=== PATIENT | female | born 1980 | race Caucasian/White ===

== ENCOUNTER 2021-02-04 16:36 | Emergency (ER) | payer MEDICAID ==
[2021-02-04] MEDS ORDERED: Ketorolac 60 MG/2 ML SDV IM ONE (16:58)
[2021-02-04] MEDS ORDERED: methylPREDNISolone Sodium Succinate 125 MG/2 ML SDV IM ONE (16:58)
[2021-02-04] MEDS ORDERED: Loratadine 10 MG Tab PO ONE (16:59)
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
== END 2021-02-04 17:45 | disposition home or self-care (01) ==
LOC: FB.ED 16:36
DX: T54.91XA Toxic effect of unspecified corrosive substance, accidental (unintentional), initial encounter (principal); L30.9 Dermatitis, unspecified
CPT/HCPCS: 96372; 99283; A9270; J1885; J2930

== ENCOUNTER 2021-08-27 03:31 | Emergency (ER) | payer MEDICAID ==
[2021-08-27] MEDS ORDERED: Acetaminophen/Codeine 300-30 MG Tab PO ONE (03:32)
[2021-08-27] MEDS ORDERED: Sulfamethoxazole/Trimethoprim 800-160 MG Tab PO ONE (03:32)
--- NOTE | 2021-08-28 03:59 | ER ---
DATE SEEN: 08/27/2021 CHIEF COMPLAINT: Ear pain. HISTORY OF PRESENT ILLNESS: This is a 41-year-old female with right ear pain x2 hours. Also noted bleeding from that area. No fever. Has not taken anything to relieve the pain. REVIEW OF SYSTEMS: Negative for sore throat. MEDICATIONS: Reviewed. ALLERGIES: Cephalexin and penicillin. PHYSICAL EXAMINATION: VITAL SIGNS: Afebrile. EARS: The right TM is bulging and ruptured. NECK: Supple. No lymphadenopathy. IMPRESSION: Otitis media. PLAN: Bactrim DS and Tylenol No. 3. /[id number] JASMINA/ANAMIKA
== END 2021-08-27 03:50 | disposition home or self-care (01) ==
LOC: FB.ED 03:31
DX: H66.91 Otitis media, unspecified, right ear (principal)
CPT/HCPCS: 99282; A9270-GY

== ENCOUNTER 2021-09-04 12:57 | Emergency (ER) | payer MEDICAID ==
[2021-09-04] MEDS ORDERED: Acetaminophen/HYDROcodone 325-5 MG Tab PO STA (13:26)
[2021-09-04] MEDS ORDERED: Iopamidol 755 Mg/ML 100 ML Bottle IV ONE (14:52)
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
--- NOTE | 2021-09-04 16:10 | CT ---
COMPUTERIZED TOMOGRAPHY ANGIOGRAPHY CHEST WITH CONTRAST INDICATION: Elevated D-dimer, family history of clots, question PE. TECHNIQUE: Spiral 1.25 mm axial sections were obtained through the chest with 85 mL Isovue 370 at 4 mL/second with sagittal, axial and coronal reconstructions 09/04/21 - no comparison. Total exam DLP was 890.74 mGy/cm. FINDINGS: What appears to be the right thyroid lobe is markedly enlarged. There may be a mass in that area. Ultrasound may be helpful for confirmation. There are some calcified lymph nodes suggesting previous granulomatous disease in the mediastinum. No mediastinal mass was seen. The heart did not appear enlarged. No gross abnormality was noted in the visualized abdomen. A definite active infiltrate or effusion was not identified. Linear scar is suggested at the right lung base. No definite evidence of PE identified. There are some mottled areas of perfusion suggested, but these likely are due to flow artifact. There are some mild hypertrophic degenerative changes of vertebral bodies anteriorly in the upper through lower thoracic spine. IMPRESSION: 1. No definite evidence for pulmonary emboli. 2. Minimal scarring at the right lung base. 3. No definite acute process. Report was called to Dr. Ramirez [facility] [address] [facility]
== END 2021-09-04 16:15 | disposition home or self-care (01) ==
LOC: FB.ED 12:57
DX: S22.31XA Fracture of one rib, right side, initial encounter for closed fracture (principal); J44.9 Chronic obstructive pulmonary disease, unspecified; I10 Essential (primary) hypertension; F17.210 Nicotine dependence, cigarettes, uncomplicated; Z88.0 Allergy status to penicillin; Z88.8 Allergy status to other drugs, medicaments and biological substances; Z79.899 Other long term (current) drug therapy; X58.XXXA Exposure to other specified factors, initial encounter
CPT/HCPCS: 36415; 71101; 71275; 85379; 99284; A9270; Q9967